=== PATIENT | female | born 1930 | race Caucasian/White ===

== ENCOUNTER → 2016-08-07 | Outpatient (CLI) | payer MEDICARE, BC ==
[2016-08-07 09:40] LABS: ALT 28 U/L (9-52); AST 21 U/L (14-36); Alkaline Phosphatase 62 U/L (38-126); Anion Gap 11 mmol/L; Blood Urea Nitrogen 13 mg/dL (7-17); Calcium 9.4 mg/dL (8.4-10.2); Carbon Dioxide 25 mmol/L (22-30); Chloride 106 mmol/L (98-107); Cholesterol 232 mg/dL (<200); Glucose 128 mg/dL (74-99); HDL Cholesterol 42 mg/dL (40-60); Non-African American GFR(MDRD) >60 (>60 ml/min/1.73 sqM); Potassium 4.8 mmol/L (3.5-5.1); Sodium 142 mmol/L (137-145); Total Bilirubin 0.8 mg/dL (0.2-1.3); Total Protein 7.3 g/dL (6.3-8.2); Triglycerides 266 mg/dL (<150)
[2016-08-07 13:20] LABS: Hemoglobin A1C 6.6 % (4.2-6.1)
== END | disposition home or self-care (01) ==
LOC: LABWHC1 09:01
PROVIDERS: ATTEND Internal Medicine Interventional Cardiology
DX: E78.2 Mixed hyperlipidemia (principal)
CPT/HCPCS: 36415; 80053; 80061; 83036; 84443

== ENCOUNTER → 2020-08-28 | Outpatient (CLI) | payer MEDICARE, BC ==
--- NOTE | 2020-08-28 17:51 | MR ---
EXAMINATION TYPE: MR brain wo/w con DATE OF EXAM: 08/28/2020 COMPARISON: None HISTORY: Headaches, F/U rt cerebral meningioma. Hx of head injury. CONTRAST: Standard multiplanar, multisequence MRI departmental protocol utilizing 7.5 mL intravenous Gadavist g adolinium contrast. There is diffuse cerebral cortical atrophy. There is no mass effect nor midline shift. There is no si gn of intracranial hemorrhage. There is thinning of the corpus callosum. Diffusion images show no sig n of an acute infarct. On the T2 and FLAIR images there are numerous foci of abnormal increased signa l around the lateral ventricles in a malone-white matter junction of both cerebral hemispheres. Total n umber is more than 30 and these measure up to 6 mm this is more likely related to microvascular ische rafal. There is normal enhancement of the venous sinuses. There is extra-axial 14 x 10 mm area of enhan cement at the right frontal lobe convexity consistent with a meningioma. There is no mass effect or a djacent edema. There is normal enhancement of the venous sinuses. IMPRESSION: Right frontal convexity meningioma. Cerebral atrophy and chronic small vessel ischemia.
== END | disposition home or self-care (01) ==
LOC: RADMRIMAIN 11:12
PROVIDERS: ATTEND Psychiatry & Neurology Clinical Neurophysiology
DX: D32.0 Benign neoplasm of cerebral meninges (principal); G31.9 Degenerative disease of nervous system, unspecified; I67.82 Cerebral ischemia
CPT/HCPCS: 70553; A9585

== ENCOUNTER → 2021-05-14 | Outpatient (CLI) | payer MEDICARE, BC ==
--- NOTE | 2021-05-14 13:30 | MR ---
EXAMINATION TYPE: MR brain wo/w con DATE OF EXAM: 05/14/2021 COMPARISON: MRI brain August 28, 2020 HISTORY: Headaches with known meningioma. TECHNIQUE: Multiplanar, multisequence images of the brain and brainstem is performed without and with IV contras t, utilizing 7 mL intravenous Gadavist . FINDINGS: Diffusion weighted images demonstrate no evidence of a recent infarct or other diffusion ab normality. There is fairly moderate ventricular and sulcal prominence redemonstrated. Scattered foca l and confluent areas of T2 hyperintensity throughout the white matter again seen greatest at deep an d periventricular levels. No significant change from prior MRI. Midline structures redemonstrate normal morphology. The craniocervical junction appears within luda l limits. Post contrast images redemonstrate homogeneous enhancing 1.3 x 1.0 x 1.2 cm inferior right frontal enhancing extra-axial mass or small meningioma axial image 31 and coronal image 9 unchanged in appearance from prior MRI. The visualized sinuses are clear and the globes are intact. Slightly pr ominent but subcentimeter right intraparotid lymph node axial image 4 is stable from prior and is radha s presumed benign. IMPRESSION: Moderate diffuse cerebral atrophy and chronic small vessel ischemic change along with 1.3 cm inferior right frontal meningioma redemonstrated. No significant change from prior MRI.
== END | disposition home or self-care (01) ==
LOC: RADMRIMAIN 09:32
PROVIDERS: ATTEND Psychiatry & Neurology Clinical Neurophysiology
DX: D32.0 Benign neoplasm of cerebral meninges (principal); G31.9 Degenerative disease of nervous system, unspecified; I67.82 Cerebral ischemia
CPT/HCPCS: 70553; A9585